=== PATIENT | female | born 1995 | race Caucasian/White ===

== ENCOUNTER 2017-05-29 17:24 | Emergency (ER) | payer SELFPAY ==
[~2017-05-29] VITALS: Ht 154.9 cm; Wt 61.4 kg
[2017-05-29 17:29] VITALS: BP 152/87; TEMP 98.7
[2017-05-29 18:20] LABS: BASO % 0.4 % (0.0-2.0); EOS # 0.1 (0.0-0.7); EOS % 0.9 % (0-4.0); GRAN # 3.8 (1.4-6.5); GRAN % 54.8 % (42.2-75.2); HEMATOCRIT 43.1 % (37.0-47.0); HEMOGLOBIN 15.3 g/dl (12.5-16.0); LYMPH # 2.6 (1.2-3.4); MEAN CELL VOLUME 90 fl (80.0-100.0); MEAN CORPUSCULAR HEMOGLOBIN 32 pg (27.0-31.0); MEAN CORPUSCULAR HGB CONC 36 g/dl (33.0-37.0); MEAN PLATELET VOLUME 11.7 fl (7.4-10.4); MONO # 0.4 (0.1-0.6); MONO % 5.8 % (1.7-9.3); PLATELET COUNT 184 K/mm3 (130-400); RED BLOOD COUNT 4.81 M/mm3 (4.10-5.30)
[2017-05-29 18:37] LABS: ADJUSTED CALCIUM 9.1 mg/dL (8.4-10.2); ALANINE AMINOTRANSFERASE 35 U/L (9-52); ALBUMIN 5.3 gm/dL (3.5-5.0); ALKALINE PHOSPHATASE 73 U/L (50-136); ANION GAP 13 mmol/L (7-16); BILIRUBIN,TOTAL 1.3 mg/dL (0.0-1.0); BLOOD UREA NITROGEN 8 mg/dL (7-17); CALCIUM 10.1 mg/dL (8.4-10.2); CARBON DIOXIDE 22 mmol/L (22-30); CHLORIDE 106 mmol/L (98-107); GLUCOSE 91 mg/dL (74-106); POTASSIUM 3.9 mmol/L (3.4-5.0); SODIUM 140 mmol/L (137-145); TOTAL PROTEIN 8.1 gm/dL (6.4-8.2)
[2017-05-29 18:39] LABS: ACETAMINOPHEN < 10 ug/mL (10-30); ALCOHOL(ethanol),MEDICAL < 10 mg/dL; SALICYLATE < 1.0 mg/dL
[2017-05-29 18:59] LABS: AMPHETAMINE URINE NEGATIVE; BARBITURATES URINE NEGATIVE; BENZODIAZEPINES URINE NEGATIVE; BUPRENORPHINE URINE NEGATIVE; METHADONE URINE NEGATIVE; OPIATES URINE NEGATIVE; OXYCODONE URINE NEGATIVE; PHENCYCLIDINE URINE NEGATIVE; PROPOXYPHENE URINE NEGATIVE; THC CANNABINOIDS URINE POSITIVE; TRICYCLIC ANTIDEPRESS URINE NEGATIVE
[2017-05-29 20:45] VITALS: PULSE 88
== END 2017-05-29 20:46 | disposition home or self-care (01) ==
LOC: COL.ER 17:24
PROVIDERS: Nurse Practitioner
DX: F32.9 Major depressive disorder, single episode, unspecified (principal); F12.90 Cannabis use, unspecified, uncomplicated; Z90.89 Acquired absence of other organs

== ENCOUNTER 2018-07-20 17:25 | Emergency (ER) | payer SELFPAY ==
[~2018-07-20] VITALS: Ht 152.4 cm; Wt 61.4 kg
[2018-07-20 17:33] VITALS: BP 136/84; PULSE 94; TEMP 98.4
[2018-07-20] MEDS ORDERED: QUALITY CHOI500 U/GM TOP (17:53)
== END 2018-07-20 18:16 | disposition home or self-care (01) ==
LOC: COL.ER 17:25
DX: L25.9 Unspecified contact dermatitis, unspecified cause (principal)
CPT/HCPCS: J1100

== ENCOUNTER 2019-03-07 14:23 | Emergency (ER) | payer SELFPAY ==
[~2019-03-07] VITALS: Ht 152.4 cm; Wt 56.8 kg
[~2019-03-07 14:23] MED LIST: QUALITY CHOI500 U/GM TOP
[2019-03-07 14:27] VITALS: BP 139/86
[2019-03-07] MEDS ORDERED: AMOXICILLIN 8751 TAB PO (15:25)
[2019-03-07 15:39] VITALS: PULSE 68; TEMP 98.1
== END 2019-03-07 15:38 | disposition home or self-care (01) ==
LOC: COL.ER 14:23
DX: S31.41XA Laceration without foreign body of vagina and vulva, initial encounter (principal); F12.90 Cannabis use, unspecified, uncomplicated; Z23 Encounter for immunization; W50.3XXA Accidental bite by another person, initial encounter